=== PATIENT | male | born 1950 | race Caucasian/White ===

== ENCOUNTER 2017-07-04 07:40 | Emergency (ER) | payer OTHER ==
[2017-07-04 09:19] LABS: microscopic required? NO
[2017-07-04 09:40] LABS: UA SPECIFIC GRAVITY 1.015 (1.005-1.035); urine erythrocyte NEGATIVE (NEGATIVE)
[2017-07-04 09:55] VITALS: BP 141/74
== END 2017-07-04 09:55 | disposition home or self-care (01) ==
LOC: ED 07:40
PROVIDERS: Emergency Medicine
DX: N45.1 Epididymitis (principal); I10 Essential (primary) hypertension; K21.9 Gastro-esophageal reflux disease without esophagitis
CPT/HCPCS: 36415; 87491; 87591; Q0092